=== PATIENT | female | born 1945 | race Caucasian/White ===

== ENCOUNTER 2023-06-23 06:01 | Day surgery (SDC) | payer MEDICARE, BC ==
[2023-06-23] MEDS ORDERED: Midazolam 1 MG/ML 2 ML SDV ONE (06:13)
[2023-06-23] MEDS ORDERED: fentaNYL 100 MCG/2 ML SDV ONE (06:14)
[2023-06-23] MEDS: Dextrose 5%-0.45% NaCl 1,000 ML IV SCH (06:37)
[2023-06-23] MEDS: fentaNYL 100 MCG/2 ML SDV IV ONE ×3 (07:04→07:10)
[2023-06-23] MEDS: Midazolam 1 MG/ML 2 ML SDV IV ONE ×4 (07:06→07:15)
== END 2023-06-23 09:33 | disposition home or self-care (01) ==
LOC: DL.ENDO 06:01
PROVIDERS: ATTEND Internal Medicine Gastroenterology
DX: D12.0 Benign neoplasm of cecum (principal); K57.30 Diverticulosis of large intestine without perforation or abscess without bleeding; I10 Essential (primary) hypertension; I25.10 Atherosclerotic heart disease of native coronary artery without angina pectoris; Z95.5 Presence of coronary angioplasty implant and graft
CPT/HCPCS: 88305; J2250; J3010; J7042